=== PATIENT | female | born 1945 ===

== ENCOUNTER 2017-03-30 13:15 | Emergency (ER) | payer OTHER ==
[2017-03-30 13:35] VITALS: BP 134/69; PULSE 68; RESP 16; TEMP 98.6; O2SAT 100
--- NOTE | 2017-03-30 14:30 | ED PDOC ---
Lower Extremity Pain/Injury Time Seen by Provider: 03/30/17 13:44 Chief Complaint (Nursing): Lower Extremity Problem/Injury Chief Complaint (Provider): Left Leg Swelling History Per: Patient History/Exam Limitations: no limitations Current Symptoms Are (Timing): Still Present Additional Complaint(s): 71 year old female presents to the ED complaining of left leg swelling. Denies fall, pain. Patient has not been to the doctor and has no regular primary care provider. FAMILY PROVIDER,NO Past Medical History Reviewed: Historical Data, Nursing Documentation, Vital Signs Vital Signs: Last Vital Signs Temp 98.6 F 03/30/17 13:31 Pulse 68 03/30/17 13:31 Resp 16 03/30/17 13:31 BP 134/69 03/30/17 13:31 Pulse Ox 100 03/30/17 13:31 - Medical History PMH: No Chronic Diseases - Surgical History Surgical History: No Surg Hx - Family History Family History: States: Unknown Family Hx - Living Arrangements Living Arrangements: With Family - Social History Current smoker - smoking cessation education provided: No Ex-Smoker (has not smoked in the last 12 months): No Alcohol: None Drugs: Denies - Home Medications Home Medications: Ambulatory Orders Medication Instructions Recorded Calcium Carbonate/Vitamin D3 1 tab PO DAILY 08/16/15 [Caltrate 600 + D Tablet] Meclizine [Meclizine*] 25 mg PO Q6 PRN #20 tab 08/16/15 Compression Socks, Medium [Futuro 1 each MC DAILY #1 each 03/30/17 Restoring] - Allergies Allergies/Adverse Reactions: Allergies Allergy/AdvReac Type Severity Reaction Status Date / Time No Known Allergies Allergy Verified 07/05/15 21:00 Review of Systems Musculoskeletal: Positive for: Other (left leg swelling) Physical Exam - Reviewed Nursing Documentation Reviewed: Yes Vital Signs Reviewed: Yes - Physical Exam Appears: Positive for: Non-toxic, No Acute Distress Head Exam: Positive for: NORMAL INSPECTION Skin: Positive for: Normal Color, Warm, Dry. Negative for: Rash Eye Exam: Positive for: Normal appearance, EOMI, PERRL Cardiovascular/Chest: Positive for: Regular Rate, Rhythm, Chest Non Tender. Negative for: Tachycardia Respiratory: Positive for: Normal Breath Sounds. Negative for: Wheezing, Respiratory Distress Extremity: Positive for: Normal ROM (normal ROM of left leg), Other (2+ edema left leg;onychomycosis; multiple toe deformity toes angulated at MTP.). Negative for: Tenderness (no tenderness to left leg), Calf Tenderness (negative sherly's sign) Neurologic/Psych: Positive for: Alert, Oriented, Gait - Laboratory Results Result Diagrams: 03/30/17 15:00 03/30/17 15:00 - ECG O2 Sat by Pulse Oximetry: 100 (RA) Pulse Ox Interpretation: Normal - Progress ED Course And Treament: DUPLEX: NEG FOR DVT LABS WNL WILL GIVE RX FOR COMPRESSION STOCKING AND F/U INSTRUCTIONS. Medical Decision Making Medical Decision Makin Initial Impression 71 y/o female presenting with left leg swelling Initial PLan: * PROBNP * BMP * CBC * PTT * Prothrombin Time * US Duplex * Reevaluation 1510 HISTORY: R/O DVT . PRIORS: None. FINDINGS: 2-D, color and duplex Doppler analysis of the lower extremity venous circulation using routine protocol from the femoral veins through the popliteal veins. Venous compressibility: Normal. Flow and augmentation patterns: Normal. Visualized veins upper third of calf: Normal. Michaud cyst: None. IMPRESSION: No sonographic or Doppler evidence for DVT in left lower extremity. Documented by Jossie Subramanian acting as a scribe for Nora Shirley PA-C. All medical record entries made by the Scribe were at my direction and personally dictated by me. I have reviewed the chart and agree that the record accurately reflects my personal performance of the history, physical exam, medical decision making, and the department course for this patient. I have also personally directed, reviewed, and agree with the discharge instructions and disposition. Disposition - Clinical Impression Clinical Impression: Lower extremity edema - Patient ED Disposition Is Patient to be Admitted: No - Disposition Referrals: [facility] [Outside] Disposition: Routine/Home Disposition Time: 16:13 Condition: FAIR Prescriptions: Compression Socks, Medium [Futuro Restoring] 1 each MC DAILY #1 each Instructions: Leg Edema (ED) Forms: [employer] (Japanese) Print Language: POLISH
--- NOTE | 2017-03-30 15:12 | US ---
HISTORY: R/O DVT . PRIORS: None. FINDINGS: 2-D, color and duplex Doppler analysis of the lower extremity venous circulation using routine protocol from the femoral veins through the popliteal veins. Venous compressibility: Normal. Flow and augmentation patterns: Normal. Visualized veins upper third of calf: Normal. Michaud cyst: None. IMPRESSION: No sonographic or Doppler evidence for DVT in left lower extremity.
[2017-03-30 15:26] LABS: BASO % 0.5 % (0.0-2.0); EOS % 0.9 % (0.0-4.0); HEMOGLOBIN 12.9 g/dL (12.0-16.0); LYMPH # 1.6 K/uL (1.0-4.3); LYMPH % 35.2 % (20.0-40.0); MEAN CELL VOLUME 88.5 fl (81.0-99.0); MEAN CORPUSCULAR HGB CONC 32.8 g/dL (33.0-37.0); MEAN PLATELET VOLUME 8.1 fl (7.2-11.7); MONO # 0.3 K/uL (0.0-0.8); MONO % 7.2 % (0.0-10.0); NEUT # 2.6 K/uL (1.8-7.0); NEUT % 56.2 % (50.0-75.0); NRBC % 0.3 % (0.0-0.0); RBC 4.44 Mil/uL (3.80-5.20); RED CELL DISTRIBUTION WIDTH 12.9 % (11.5-14.5); WHITE BLOOD COUNT 4.6 K/uL (4.8-10.8)
[2017-03-30 15:49] LABS: BLOOD UREA NITROGEN 16 mg/dl (7-17); CALCIUM 9.6 mg/dL (8.4-10.2); GFR AFRICAN-AMERICAN > 60; GFR NON-AFRICAN AMERICAN > 60
[2017-03-30 15:57] LABS: B-TYPE NATRIURETIC PEPTIDE 305 pg/ml (0-900)
[2017-03-30 16:43] LABS: INR 1.1 (0.9-1.2); PARTIAL THROMBOPLASTIN TIME 30.7 Seconds (25.6-37.1); PROTHROMBIN TIME 11.7 Seconds (9.8-13.1)
== END 2017-03-30 16:23 | disposition home or self-care (01) ==
LOC: H.ER 13:15
DX: R60.0 Localized edema (principal)

== ENCOUNTER 2017-06-18 21:35 | Inpatient (IN) | payer MEDICAID, OTHER ==
[2017-06-18 22:08] LABS: BASO % 0.5 % (0.0-2.0); EOS % 0.6 % (0.0-4.0); HEMOGLOBIN 14.3 g/dL (12.0-16.0); LYMPH # 4.2 K/uL (1.0-4.3); LYMPH % 52.3 % (20.0-40.0); MEAN PLATELET VOLUME 8.2 fl (7.2-11.7); MONO # 0.9 K/uL (0.0-0.8); MONO % 11.1 % (0.0-10.0); NEUT # 2.9 K/uL (1.8-7.0); NEUT % 35.5 % (50.0-75.0); NRBC % 0.1 % (0.0-0.0); RBC 4.93 Mil/uL (3.80-5.20); RED CELL DISTRIBUTION WIDTH 12.8 % (11.5-14.5); WHITE BLOOD COUNT 8.1 K/uL (4.8-10.8)
[2017-06-18 22:18] LABS: ALB/GLOB RATIO 1.4 (1.0-2.1); ALBUMIN 4.7 g/dL (3.5-5.0); ALT/SGPT 25 U/L (9-52); AST/SGOT 27 U/L (14-36); BLOOD UREA NITROGEN 15 mg/dl (7-17); CALCIUM 9.6 mg/dL (8.4-10.2); GFR AFRICAN-AMERICAN 59; GFR NON-AFRICAN AMERICAN 49
--- NOTE | 2017-06-18 22:42 | ED PDOC ---
HPI: Seizure Time Seen by Provider: 06/18/17 21:40 Chief Complaint (Nursing): Altered Mental Status Chief Complaint (Provider): Seizure History Per: Patient, EMS, Family (daughter) History/Exam Limitations: clinical condition (Seizure) Recent Seizure Activity Began: Just Before Arrival Length Of Seizures (Duration): Unknown Additional Complaint(s): 72 year old female, with ? medical history of hypertension, presented to ED via EMS accompanied by granddaughter and daughter for seizure onset [facility]. Per EMS, pt and her grandmother were home, and seizure was witnessed by granddaughter who she reports seizure like activity, generalized shaking of patients upper extremity, eyes roll back. Upon arrival in the ER, pt was very agitated toward staff. She was trying to pull off her ID band, and not allowing us to place an IV or keep the gown on. She was attempting to climb out of the bed. According to the patients daughter (who wasnt present during shaking episode) pt has no doctor, has no prior medical problems but doesnt have any primary physician to follow up with. States as far as she knows, pt has no recent fever/vomiting/ headache/dizziness. PMD: Past Medical History Reviewed: Historical Data, Nursing Documentation, Vital Signs Vital Signs: Last Vital Signs Temp 98.1 F 06/19/17 19:29 Pulse 84 06/19/17 19:29 Resp 16 06/19/17 19:29 BP 132/68 06/19/17 19:29 Pulse Ox 98 06/19/17 19:29 - Medical History PMH: HTN - Surgical History Surgical History: No Surg Hx - Family History Family History: States: Unknown Family Hx - Social History Current smoker - smoking cessation education provided: No Alcohol: None Drugs: Denies - Home Medications Home Medications: Ambulatory Orders Medication Instructions Recorded No Known Home Med 06/19/17 - Allergies Allergies/Adverse Reactions: Allergies Allergy/AdvReac Type Severity Reaction Status Date / Time No Known Allergies Allergy Verified 06/18/17 21:40 Review of Systems Review Of Systems: ROS cannot be obtained secondary to pt's inabilty to answer questions. (due to seizure activity) Neurological: Positive for: Seizures Physical Exam - Reviewed Nursing Documentation Reviewed: Yes Vital Signs Reviewed: Yes - Physical Exam Appears: Positive for: Non-toxic (agitated and uncooperative) Skin: Positive for: Normal Color, Warm, Dry Neck: Positive for: Normal, Painless ROM Cardiovascular/Chest: Positive for: Regular Rate, Rhythm Respiratory: Positive for: Normal Breath Sounds Gastrointestinal/Abdominal: Positive for: Normal Exam Extremity: Positive for: Normal ROM Neurologic/Psych: Positive for: Alert (awake and in no distress. But appears confused. Not able to follow commands. ), linoleum installer II-XII, Motor/Sensory Deficits ( pt moving all 4 extremities without distress. no apparent weakness.), Other ( Agitated, attempting to pull off wrist band, swinging at the staff in the ER). Negative for: Oriented, Facial Droop - Laboratory Results Result Diagrams: 06/19/17 05:00 06/19/17 05:00 - ECG ECG Rhythm: Positive for: Sinus Tachycardia (106) Medical Decision Making Medical Decision Making: Initial Impression: Seizure - witnessed. will need to rule out electrolyte abnormality/infection/ intracranial bleed Initial Plan: CT w/o contrast ECG Drug screen, urine X-Ray Ativan 1mg IM Ativan 1mg IV Urine culture Urinalysis -Patient was pulling and attempting to swing at staff and trying to jump out of bed. She was given soft restraints and medications to relieve agitation (ativan ). - with ativan, pt calmed down. CT head: no acute findings. actate 10, likely due to seizure activity as there is no other sign of infection such as elevated wbc or fever. Urine shows no UTI. tox screen negative. ordered AM consult w neurology pt will be admitted to tele under hospitalist Dr Carlisle. Scribe Attestation: Documented by Atilio Anguiano acting as a scribe for Tika Mckenna MD. Provider Scribe Attestation: All medical record entries made by the Scribe were at my direction and personally dictated by me. I have reviewed the chart and agree that the record accurately reflects my personal performance of the history, physical exam, medical decision making, and the department course for this patient. I have also personally directed, reviewed, and agree with the discharge instructions and disposition. Disposition - Clinical Impression Clinical Impression: Seizure - Patient ED Disposition Is Patient to be Admitted: Yes - Disposition Disposition Time: 23:00 Condition: STABLE
[2017-06-18 23:30] LABS: URINE BILIRUBIN NEGATIVE (NEGATIVE); URINE BLOOD NEGATIVE (NEGATIVE); URINE CLARITY CLEAR (Clear); URINE COLOR YELLOW (YELLOW); URINE GLUCOSE (UA) NEG (Normal); URINE LEUKOCYTE ESTERASE NEG Leu/uL (Negative); URINE PROTEIN 30 mg/dL (NEGATIVE); URINE UROBILINOGEN 0.2-1.0 mg/dL (0.2-1.0)
[2017-06-18 23:40] LABS: BARBITURATES, UR NEGATIVE (NEGATIVE); BENZODIAZEPINES, UR NEGATIVE (NEGATIVE); OPIATES, UR NEGATIVE (NEGATIVE); PHENCYCLIDINE, UR NEGATIVE (NEGATIVE)
--- NOTE | 2017-06-18 23:59 | CT ---
EXAM: CT Head Without Intravenous Contrast EXAM DATE/TIME: 06/18/2017 9:51 PM CLINICAL HISTORY: 72 years old, female; Signs and symptoms; Altered mental status/memory loss; Other: Poss seizure TECHNIQUE: Axial computed tomography images of the head/brain without intravenous contrast. All CT scans at this facility use one or more dose reduction techniques, viz.: automated exposure control; ma/kV adjustment per patient size (including targeted exams where dose is matched to indication; i.e. head); or iterative reconstruction technique. Coronal and sagittal reformatted images were created and reviewed. COMPARISON: CT - HEAD W/O CONTRAST 2015-08-16 12:55 FINDINGS: There is atrophy. There is chronic small vessel ischemic disease. There is an area of encephalomalacia in the right frontal lobe similar to prior. There is no hemorrhage or edema. Mucosal thickening left maxillary sinus. The osseous structures are normal. IMPRESSION: No acute intracranial findings.
[2017-06-19] MEDS ORDERED: Sodium Chloride 0.9% 1,000 ML IV STA (00:06)
--- NOTE | 2017-06-19 00:17 | CP.PCM.HP ---
History of Present Illness - History of Present Illness History of Present Illness: CC: agitation, seizures HPI: This is a 72 y/o female with ?HTN but no other known chronic problems who does not follow up with any PCP. She is brought in after having a seizure at home witnessed by family. Here in the ER, patient was agitated and was sedated. Patient has no history of seizures, dementia, EtOH abuse or other substance use as far as is known. Patient also has no history of head trauma as far as is known. Patient has not had any recent illnesses/fevers otherwise. ROS: cannot obtain, patient sedated MHx/SHx: Possibly HTN Allergies: NKDA Medications: No medications Family Hx: No history of seizures Social Hx: Lives with family, no tobacco, no EtOH Present on Admission - Present on Admission Any Indicators Present on Admission: No Past Patient History - Past Social History Smoking Status: Never Smoked - CARDIAC Hx Hypertension: Yes - PSYCHIATRIC Hx Substance Use: No - SURGICAL HISTORY Hx Surgeries: No - ANESTHESIA Hx Anesthesia: No Meds Allergies/Adverse Reactions: Allergies Allergy/AdvReac Type Severity Reaction Status Date / Time No Known Allergies Allergy Verified 06/18/17 21:40 Physical Exam - Constitutional Additional comments: patient is sedated - Head Exam Head Exam: ATRAUMATIC, NORMOCEPHALIC - ENT Exam ENT Exam: Mucous Membranes Moist - Respiratory Exam Respiratory Exam: Clear to Auscultation Bilateral, NORMAL BREATHING PATTERN - Cardiovascular Exam Cardiovascular Exam: REGULAR RHYTHM, +S1, +S2 - GI/Abdominal Exam GI & Abdominal Exam: Normal Bowel Sounds, Soft - Extremities Exam Extremities exam: Positive for: normal inspection - Neurological Exam Additional comments: patient is sedated - Skin Skin Exam: Dry, Warm Results - Vital Signs Recent Vital Signs: Last Vital Signs Temp 97.5 F L 06/18/17 22:11 Pulse 96 H 06/18/17 22:11 Resp 18 06/18/17 22:11 BP 161/80 H 06/18/17 22:11 Pulse Ox 98 06/18/17 22:11 - Labs Result Diagrams: 06/18/17 22:03 06/18/17 22:03 Labs: Laboratory Results - last 24 hr 06/18/17 06/18/17 06/18/17 21:56 22:03 22:03 WBC 8.1 D RBC 4.93 Hgb 14.3 Hct 43.4 MCV 88.0 MCH 29.0 MCHC 33.0 RDW 12.8 Plt Count 292 D MPV 8.2 Neut % (Auto) 35.5 L Lymph % (Auto) 52.3 H Will % (Auto) 11.1 H Eos % (Auto) 0.6 Baso % (Auto) 0.5 Neut # (Auto) 2.9 Lymph # (Auto) 4.2 Will # (Auto) 0.9 H Eos # (Auto) 0.0 Baso # (Auto) 0.0 Sodium 141 Potassium 3.7 Chloride 98 Carbon Dioxide 17 L Anion Gap 30 H BUN 15 Creatinine 1.1 Est GFR ( Amer) 59 Est GFR (Non-Af Amer) 49 POC Glucose (mg/dL) 123 H Random Glucose 149 H Lactic Acid Calcium 9.6 Total Bilirubin 0.5 AST 27 ALT 25 Alkaline Phosphatase 187 H Total Protein 8.1 Albumin 4.7 Globulin 3.4 Albumin/Globulin Ratio 1.4 Urine Color Urine Clarity Urine pH Ur Specific [place] Urine Protein Urine Glucose (UA) Urine Ketones Urine Blood Urine Nitrate Urine Bilirubin Urine Urobilinogen Ur Leukocyte Esterase Urine RBC (Auto) Urine Microscopic WBC Hyaline Casts Urine Opiates Screen Urine Methadone Screen Ur Barbiturates Screen Ur Phencyclidine Scrn Ur Amphetamines Screen U Benzodiazepines Scrn U Oth Cocaine Metabols U Cannabinoids Screen Alcohol, Quantitative < 10 06/18/17 06/18/17 06/18/17 22:03 23:16 23:16 WBC RBC Hgb Hct MCV MCH MCHC RDW Plt Count MPV Neut % (Auto) Lymph % (Auto) Will % (Auto) Eos % (Auto) Baso % (Auto) Neut # (Auto) Lymph # (Auto) Will # (Auto) Eos # (Auto) Baso # (Auto) Sodium Potassium Chloride Carbon Dioxide Anion Gap BUN Creatinine Est GFR ( Amer) Est GFR (Non-Af Amer) POC Glucose (mg/dL) Random Glucose Lactic Acid 10.5 H* Calcium Total Bilirubin AST ALT Alkaline Phosphatase Total Protein Albumin Globulin Albumin/Globulin Ratio Urine Color Yellow Urine Clarity Clear Urine pH 7.0 Ur Specific [place] 1.014 Urine Protein 30 Urine Glucose (UA) Neg Urine Ketones Trace Urine Blood Negative Urine Nitrate Negative Urine Bilirubin Negative Urine Urobilinogen 0.2-1.0 Ur Leukocyte Esterase Neg Urine RBC (Auto) 3 Urine Microscopic WBC 1 Hyaline Casts 3-5 H Urine Opiates Screen Negative Urine Methadone Screen Negative Ur Barbiturates Screen Negative Ur Phencyclidine Scrn Negative Ur Amphetamines Screen Negative U Benzodiazepines Scrn Negative U Oth Cocaine Metabols Negative U Cannabinoids Screen Negative Alcohol, Quantitative - EKG Data EKG Interpreted by: Myself EKG shows normal: Sinus rhythm Rate: Normal - Imaging and Cardiology CT scan - head Status: Image reviewed by me, Report reviewed by me (R frontal encephalomalacia) Chest x-ray Status: Image reviewed by me (no acute findings) Assessment & Plan (1) Seizure Assessment and Plan: 72 y/o female with agitation and possible seizure. -Admit tele obs -Ativan IV PRN for seizures -Neuro consult in AM -SCDs for DVT prophylaxis Status: Acute (2) DVT prophylaxis Status: Acute
[2017-06-19] MEDS ORDERED: Labetalol 5 mg/ml Inj 20ML IVP STA (01:53)
[2017-06-19 06:16] LABS: BASO % 0.4 % (0.0-2.0); HEMOGLOBIN 13.9 g/dL (12.0-16.0); LYMPH % 11.4 % (20.0-40.0); MEAN CELL VOLUME 87.2 fl (81.0-99.0); MEAN CORPUSCULAR HGB CONC 33.3 g/dL (33.0-37.0); MEAN PLATELET VOLUME 8.6 fl (7.2-11.7); MONO # 0.4 K/uL (0.0-0.8); NEUT # 7.4 K/uL (1.8-7.0); NEUT % 83.2 % (50.0-75.0); NRBC % 0.1 % (0.0-0.0); RBC 4.79 Mil/uL (3.80-5.20); RED CELL DISTRIBUTION WIDTH 12.7 % (11.5-14.5); WHITE BLOOD COUNT 8.8 K/uL (4.8-10.8)
[2017-06-19 06:31] LABS: BLOOD UREA NITROGEN 11 mg/dl (7-17); GFR AFRICAN-AMERICAN > 60; GFR NON-AFRICAN AMERICAN > 60
[2017-06-19 08:40] LABS: T4 10.3 ug/dl (5.5-11.0)
[2017-06-19 08:53] LABS: T3 0.934 nmol/L (1.49-2.60)
--- NOTE | 2017-06-19 09:59 | RAD ---
HISTORY: agitation COMPARISON: 08/16/2015 FINDINGS: LUNGS: Lung cornelius appear overinflated ; rule out underlying COPD and/or emphysema. PLEURA: No significant pleural effusion identified, no pneumothorax apparent. CARDIOVASCULAR: Heart appears borderline/ mildly enlarged OSSEOUS STRUCTURES: No significant abnormalities. VISUALIZED UPPER ABDOMEN: Normal. OTHER FINDINGS: None. IMPRESSION: Mild hyperinflation; rule out COPD or emphysema.
--- NOTE | 2017-06-19 12:21 | MRI ---
PROCEDURE: MRI BRAIN WITHOUT CONTRAST HISTORY: change of mental status COMPARISON: Comparison made with prior CT scan of the brain 06/18/2017. TECHNIQUE: Multiplanar, multisequence MR images of the brain were obtained without intravenous contrast enhancement. FINDINGS: HEMORRHAGE: No acute parenchymal, subarachnoid or extra-axial hemorrhage. . There are several foci of very dark T2 signal seen scattered about both basal nuclei and right temporal lobe likely representing hemosiderin deposits as no calcifications seen in these locations on prior study. DWI: There is a very tiny focus of restricted diffusion in the right posterior superior parietal subcortical white matter near the vertex consistent with a tiny acute/ subacute infarct. BRAIN PARENCHYMA: Moderate diffuse/ confluent chronic white matter ischemic changes are seen extending peripherally into the deep and subcortical white matter both cerebral hemispheres. Discrete chronic right infarct with multiple small chronic appearing lacunar type infarcts scattered about the deep and subcortical white matter as well as both basal ganglia. Few chronic lacunar-type infarcts left cerebellum and brainstem also felt to be present. None of these changes exhibit restricted diffusion. . Moderate generalized volume loss. VENTRICLES: No obstructive hydrocephalus. CRANIUM: No acute calvarial abnormalities ORBITS: Orbits and contents appear grossly unremarkable. PARANASAL SINUSES/MASTOIDS: Visualized paranasal sinuses are well-developed re- demonstrated are of polypoid like mucosal thickening changes in the floor left maxillary antrum. VASCULAR SYSTEM: Visualized major vascular flow voids at skull base patent. OTHER FINDINGS: None. IMPRESSION: There is a tiny acute/ subacute infarct right posterior superior parietal subcortical white matter near the vertex. . Moderate chronic white matter ischemic changes with a large chronic right frontal lobe infarct. . Multiple chronic appearing lacunar type infarcts scattered about the deep and subcortical white matter, both basal nuclei and to a lesser degree brainstem and left cerebellum. There are scattered areas of hemosiderin deposits seen in the basal nuclei and right temporal lobe. Moderate generalized volume loss. These findings discussed with 4 Domo Jurado at approximately 12:18 p.m. with written down and read back verification
[2017-06-19] MEDS ORDERED: Sodium Chloride 0.9% 1,000 ML IV SCH (13:30)
[2017-06-19] MEDS ORDERED: Iodixanol 320 MG/ML 100 ML BOTTLE IV ONE (13:53)
--- NOTE | 2017-06-19 14:26 | PCM.STROKE ---
NIHSS Stroke Scale - Date/Time Evaluation Performed Date Performed: 06/19/17 Time Performed: 13:45 When Was NIHSS Performed: Baseline - How Severe is the Stroke Level of Consciousness: 1=Drowsy LOC to Questions: 2=Neither correct LOC to commands: 2=Neither correct Best Gaze: 0=Normal Visual: 0=No visual loss Facial: 0=Normal Motor Arm - Left: 0=No drift Motor Arm - Right: 0=No drift Motor Leg - Left: 0=No drift Motor Leg - Right: 0=No drift Limb Ataxia: 0=Absent Sensory: 0=Normal Best Language: 0=No aphasia Dysarthia: 0=Normal articulation Extinction & Inattention (Neglect): 0=Normal, no object (NIHSS done after MRI was read as Acute/Subacute CVA , very drowsy due to sedation and uncooperative) Score: 5 Exam - Vital Sign Vital Signs: Temp Pulse Resp BP Pulse Ox 97.6 F 87 18 93/54 L 98 06/19/17 12:23 06/19/17 12:23 06/19/17 12:23 06/19/17 12:23 06/19/17 12:23 - Data reviewed Laboratory results: 06/19/17 05:00 06/19/17 05:00
--- NOTE | 2017-06-19 14:58 | CT ---
PROCEDURE: CTA of the neck and brain dated 06/19/2017 HISTORY: Tiny acute stroke seen on recent MRI. COMPARISON: Comparison made with MRI of the brain obtained earlier same day. TECHNIQUE: Contiguous helical/transaxial images of the neck were obtained from the level of the skull-base to the superior mediastinum in the arteriographic phase of enhancement. Coronal and sagittal reformats or also generated. IV contrast dose: 99 cc Visipaque 320 Radiation Dose - DLP: 470.79 mGy-cm This CT exam was performed using one or more of the following dose reduction techniques: Automated exposure control, adjustment of the mA and/or kV according to patient size, and/or use of iterative reconstruction technique. . FINDINGS: The the aortic arch exhibits mild partially calcified atherosclerotic plaque. There is also a tiny plaque changes seen at the origin of the left subclavian and plaque along the proximal right brachiocephalic artery. However the origins of the great vessels are widely patent. . The common carotid arteries appear widely patent without evidence of significant stenosis or dissection. There is small curvilinear calcified plaque seen along the posteromedial margin of the right carotid bifurcation and extending distally into the proximal on margin of the right internal carotid artery however no significant stenosis. The distal internal carotid arteries including the petrous segments widely patent. There is mild partially calcified atherosclerotic plaque seen along both cavernous carotid arteries move left-side of which appears slightly larger than the right and results in move moderate - significant stenosis. Vertebral arteries are patent throughout left-sided which is much larger in caliber/more dominant than the right side. This is felt to represent an anatomic variation. . The right vertebral artery appears to terminate right-sided posterior inferior cerebellar artery (PICA) basilar artery is patent. There is a origin of the right posterior cerebral artery with hypoplastic appearing right-sided P1 segment. The remaining visualized major branches of the [place] are widely patent. The visualized distal branches of the anterior middle and posterior cerebral arteries are patent and relatively symmetric. No evidence of large aneurysm nor vascular malformation. Note is made of several bubbles of air within the cavernous sinuses likely due to recent intravenous injection. Heterogeneous appearance of the right thyroid gland with several of varying sized low-attenuation nodular densities at least 2 of which exhibit peripheral calcification. Consider follow-up thyroid isotope imaging further evaluation. IMPRESSION: There is a small curvilinear calcified plaque right carotid bifurcation with no significant stenosis. . Tiny left carotid bifurcation with no evidence of occlusion significant stenosis or dissection. There are partially calcified plaque changes seen both cavernous carotid segments larger than right with moderate to significant stenosis of the mid aspect of the left cavernous carotid segment. There is origin of the right posterior cerebral artery. The right vertebral artery is much smaller in caliber than the dominant left vertebral artery. Right vertebral artery also appears to terminate in a right-side posterior inferior cerebellar artery as above. No evidence of large aneurysm nor vascular malformation. Note is made of several bubbles of air within the cavernous sinuses likely due to recent intravenous injection.
--- NOTE | 2017-06-19 15:59 | US ---
PROCEDURE: Duplex ultrasound of the carotid and vertebral arteries. HISTORY: acute CVA COMPARISON: None available. TECHNIQUE: Grayscale and duplex Doppler evaluation of the cervical carotid and vertebral arteries were performed. The common carotid, carotid bifurcations and cervical ICA and proximal ECA were evaluated. The vertebral arteries were evaluated for gross patency and direction. FINDINGS: RIGHT CAROTID ARTERIES: Common Carotid Artery: Intimal thickening is present Maximal flow velocity of 92.9 cm/s. Carotid Bifurcation: Heterogeneous plaque formation. Internal Carotid Artery:Heterogeneous plaque formation. Tortuous right ICA. Maximal flow velocity of 114.1 cm/s. External Carotid Artery (proximal branches): Normal. Maximal flow velocity of 79.3 cm/s. ICA/CCA Ratio: 1.5 LEFT CAROTID ARTERIES: Common Carotid Artery: Intimal thickening is present Maximal flow velocity of 58.9 cm/s. Carotid Bifurcation: Heterogeneous plaque formation. Internal Carotid Artery:Heterogeneous plaque formation. Tortuous left ICA Maximal flow velocity of 161.2 cm/s. External Carotid Artery (proximal branches): Normal. Maximal flow velocity of 77.2 cm/s. ICA/CCA Ratio: 2.7 VERTEBRAL ARTERIES: Right Vertebral Artery: Patent. Antegrade flow. Left Vertebral Artery: Patent. Antegrade flow. OTHER FINDINGS: None. IMPRESSION: Right ICA degree of stenosis: Less than 50% Left ICA degree of stenosis: 50-69 % Reference Internal Carotid Artery (ICA) Peak Systolic Velocity (PSV) for above: 1. Less than 50% stenosis less than 125 cm/s peak systolic velocity 2. 50-69% stenosis 125-230cm/s peak systolic velocity 3. Greater than 70% but less than near occlusion greater than 230 cm/s peak systolic velocity
[2017-06-19] MEDS: Enoxaparin 40 mg Syringe SC SCH (16:03)
--- NOTE | 2017-06-19 18:59 | CARD ---
APPROVED REPORT EXAM: Two-dimensional and M-mode echocardiogram with Doppler and color Doppler. Other Information Quality : GoodRhythm : NSR INDICATION CVA/TIA 2D DIMENSIONS IVSd1.12 (0.7-1.1cm)LVDd3.69 (3.9-5.9cm) LVOT Diameter2.11 (1.8-2.4cm)PWd0.94 (0.7-1.1cm) IVSs1.11 (0.8-1.2cm)LVDs2.32 (2.5-4.0cm) FS (%) 37.1 %PWs0.96 (0.8-1.2cm) LVEF (%)55.0 (>50%) M-Mode DIMENSIONS Left Atrium (MM)2.29 (2.5-4.0cm)IVSd0.97 (0.7-1.1cm) Aortic Root3.01 (2.2-3.7cm)LVDd4.30 (4.0-5.6cm) Aortic Cusp Exc.1.76 (1.5-2.0cm)PWd1.27 (0.7-1.1cm) IVSs1.38 cmFS (%) 42 % LVDs2.48 (2.0-3.8cm)PWs1.43 cm Mitral Valve MV E Uklnzoxp47.1cm/sMV DECEL CORC035nkLE A Oftagnhi46.6cm/s MV CKE52teF/A ratio0.8MVA (PHT)3.08cm2 TDI Lateral E' Peak V4.24cm/sMedial E' Peak V5.38cm/sE/Lateral E'12.1 E/Medial E'9.5 Tricuspid Valve TR Peak [id number]/sRAP [id number] Peak Gr.25mmHg [id number] LEFT VENTRICLE The left ventricle is normal size. There is normal left ventricular wall thickness. The left ventricular function is normal. The left ventricular ejection fraction is within the normal range. There is normal LV segmental wall motion. Transmitral Doppler flow pattern is Grade I-abnormal relaxation pattern. RIGHT VENTRICLE The right ventricle is normal size. There is normal right ventricular wall thickness. The right ventricular systolic function is normal. ATRIA The left atrium size is normal. The right atrium size is normal. AORTIC VALVE The aortic valve is not well visualized. There is moderate aortic regurgitation. There is no aortic valvular stenosis. MITRAL VALVE The mitral valve is not well visualized. There is no mitral valve stenosis. Mitral regurgitation is moderate. TRICUSPID VALVE The tricuspid valve is normal in structure. There is mild tricuspid regurgitation. There is mild pulmonary hypertension. PULMONIC VALVE The pulmonary valve is normal in structure. There is no pulmonic valvular regurgitation. GREAT VESSELS The aortic root is normal in size. The IVC is normal in size and collapses >50% with inspiration. PERICARDIAL EFFUSION The pericardium appears normal. <Conclusion> The left ventricle is normal size. There is normal left ventricular wall thickness. The left ventricular function is normal. The left ventricular ejection fraction is within the normal range. There is normal LV segmental wall motion. Transmitral Doppler flow pattern is Grade I-abnormal relaxation pattern. There is moderate aortic regurgitation. There is no mitral valve stenosis. There is mild tricuspid regurgitation. There is mild pulmonary hypertension.
--- NOTE | 2017-06-19 22:48 | CARD ---
APPROVED REPORT EKG Measurement Heart [id number] <Conclusion> Sinus tachycardia Nonspecific ST and T wave abnormality Abnormal ECG
[2017-06-20 05:26] LABS: EOS # 0.1 K/uL (0.0-0.7); EOS % 2.2 % (0.0-4.0); HEMOGLOBIN 13.5 g/dL (12.0-16.0); LYMPH # 1.5 K/uL (1.0-4.3); LYMPH % 35.7 % (20.0-40.0); MEAN CELL VOLUME 87.4 fl (81.0-99.0); MEAN CORPUSCULAR HEMOGLOBIN 28.8 pg (27.0-31.0); MEAN PLATELET VOLUME 8.1 fl (7.2-11.7); MONO # 0.5 K/uL (0.0-0.8); MONO % 13.1 % (0.0-10.0); NRBC % 0.1 % (0.0-0.0); RBC 4.68 Mil/uL (3.80-5.20); RED CELL DISTRIBUTION WIDTH 12.9 % (11.5-14.5); WHITE BLOOD COUNT 4.1 K/uL (4.8-10.8)
[2017-06-20 05:44] LABS: LDL CHOLESTEROL 111 mg/dL (0-129)
[2017-06-20 05:48] LABS: ALB/GLOB RATIO 1.2 (1.0-2.1); ALBUMIN 3.4 g/dL (3.5-5.0); ALT/SGPT 28 U/L (9-52); AST/SGOT 43 U/L (14-36); BLOOD UREA NITROGEN 9 mg/dl (7-17); CALCIUM 8.6 mg/dL (8.4-10.2); GFR AFRICAN-AMERICAN > 60; GFR NON-AFRICAN AMERICAN > 60; HDL CHOLESTEROL 50 MG/DL (30-70)
[2017-06-20 06:01] LABS: PARTIAL THROMBOPLASTIN TIME 30.2 Seconds (25.6-37.1); PROTHROMBIN TIME 11.5 Seconds (9.8-13.1)
--- NOTE | 2017-06-20 08:15 | CP.PCM.PN ---
Subjective - Date & Time of Evaluation Date of Evaluation: 06/20/17 Time of Evaluation: 08:13 - Subjective Subjective: appears comfortable continues to be confused per staff discussed with Neurology will continue to work up hd sarah lei Objective - Vital Signs/Intake and Output Vital Signs (last 24 hours): Temp Pulse Resp BP Pulse Ox 97.6 F 78 18 129/60 99 06/20/17 05:00 06/20/17 05:00 06/20/17 05:00 06/20/17 05:00 06/20/17 05:00 - Medications Medications: Current Medications Aspirin (Aspirin) 325 mg PO DAILY [facility] Last Admin: 06/19/17 17:46 Dose: Not Given Atorvastatin Calcium (Lipitor) 20 mg PO DAILY [facility] Last Admin: 06/19/17 17:46 Dose: Not Given Cyanocobalamin (Vitamin B12 1000 Mcg/Ml Inj) 1,000 mcg IM BID [facility] Stop: 06/20/17 17:01 Last Admin: 06/19/17 16:03 Dose: 1,000 mcg Docusate Sodium (Colace) 100 mg PO BID [facility] Enoxaparin Sodium (Lovenox) 40 mg SC DAILY [facility] PRN Reason: Protocol Last Admin: 06/19/17 16:03 Dose: 40 mg Sodium Chloride (Sodium Chloride 0.9%) 1,000 mls @ 100 mls/hr IV .Q10H [facility] Stop: 06/20/17 13:26 Last Admin: 06/19/17 23:00 Dose: 100 mls/hr Lorazepam (Ativan) 0.5 mg IVP Q6 PRN PRN Reason: Seizure activity - Labs Labs: 06/20/17 04:50 06/20/17 04:50 PT 11.5 Seconds (9.8-13.1) 06/20/17 04:40 INR 1.0 (0.9-1.2) 06/20/17 04:40 APTT 30.2 Seconds (25.6-37.1) 06/20/17 04:40 - Constitutional Appears: Non-toxic, No Acute Distress - Head Exam Head Exam: ATRAUMATIC, NORMOCEPHALIC - Eye Exam Eye Exam: EOMI, Normal appearance - ENT Exam ENT Exam: Mucous Membranes Moist, Normal Oropharynx - Respiratory Exam Respiratory Exam: Clear to Ausculation Bilateral, NORMAL BREATHING PATTERN - Cardiovascular Exam Cardiovascular Exam: RRR, +S1, +S2 - GI/Abdominal Exam GI & Abdominal Exam: Soft, Normal Bowel Sounds - Extremities Exam Extremities Exam: absent: Joint Swelling, Pedal Edema - Back Exam Back Exam: absent: CVA tenderness (L), CVA tenderness (R) - Neurological Exam Neurological Exam: Alert, Awake - Psychiatric Exam Psychiatric exam: Normal Affect, Normal Mood - Skin Skin Exam: Dry, Warm Assessment and Plan - Assessment and Plan (Free Text) Plan: 72 y/o female with ?HTN but no other known chronic problems who does not follow up with any PCP. She is brought in after having a seizure at home witnessed by family. Here in the ER, patient was agitated and was sedated. Patient has no history of seizures, dementia, EtOH abuse or other substance use as far as is known. Patient also has no history of head trauma as far as is known. Patient has not had any recent illnesses/fevers otherwise. Seizure - with confusion, infection workup negative -Admit tele obs -Ativan IV PRN for seizures -Neuro consult in AM -PT/OT on board -SCDs for DVT prophylaxis
[2017-06-20] MEDS: Enoxaparin 40 mg Syringe SC SCH (08:24)
--- NOTE | 2017-06-20 17:16 | CP.PCM.CON ---
History of Present Illness - History of Present Illness History of Present Illness: 72 yr old woman seen in bed, with her family, and unresponsive due to receiving sedation earlier this hour. She is on board for an MRI [facility]. Past Patient History - Past Medical History & Family History Past Medical History?: Yes - Past Social History Alcohol: None Drugs: Denies - CARDIAC Hx Hypertension: Yes - PULMONARY Hx Respiratory Disorders: No - NEUROLOGICAL Hx Neurological Disorder: No - HEENT Hx HEENT Problems: No - RENAL Hx Chronic Kidney Disease: No Hx Dialysis: No - ENDOCRINE/METABOLIC Hx Endocrine Disorders: No - HEMATOLOGICAL/ONCOLOGICAL Hx Blood Disorders: No Hx AIDS: No Hx Human Immunodeficiency Virus (HIV): No - INTEGUMENTARY Hx Dermatological Problems: No - MUSCULOSKELETAL/RHEUMATOLOGICAL Hx Musculoskeletal Disorders: No Hx Falls: No - GASTROINTESTINAL Hx Gastrointestinal Disorders: No - GENITOURINARY/GYNECOLOGICAL Hx Genitourinary Disorders: No - PSYCHIATRIC Hx Psychophysiologic Disorder: No Hx Substance Use: No - SURGICAL HISTORY Hx Surgeries: No - ANESTHESIA Hx Anesthesia: No Hx Anesthesia Reactions: No Hx Malignant Hyperthermia: No Has any member of the family had a problem w/ anesthesia?: No Meds Allergies/Adverse Reactions: Allergies Allergy/AdvReac Type Severity Reaction Status Date / Time No Known Allergies Allergy Verified 06/18/17 21:40 - Medications Medications: Current Medications Aspirin (Aspirin) 325 mg PO DAILY [facility] Last Admin: 06/20/17 08:28 Dose: 325 mg Atorvastatin Calcium (Lipitor) 20 mg PO DAILY [facility] Last Admin: 06/20/17 08:24 Dose: 20 mg Clopidogrel Bisulfate (Plavix) 75 mg PO DAILY [facility] Last Admin: 06/20/17 15:59 Dose: 75 mg Docusate Sodium (Colace) 100 mg PO BID [facility] Last Admin: 06/20/17 16:00 Dose: 100 mg Enoxaparin Sodium (Lovenox) 40 mg SC DAILY [facility] PRN Reason: Protocol Last Admin: 06/20/17 08:24 Dose: 40 mg Lorazepam (Ativan) 0.5 mg IVP Q6 PRN PRN Reason: Seizure activity Results - Vital Signs Recent Vital Signs: Last Vital Signs Temp 97.6 F 06/20/17 16:14 Pulse 83 06/20/17 16:14 Resp 20 06/20/17 16:14 BP 124/68 06/20/17 16:14 Pulse Ox 98 06/20/17 16:14 - Labs Result Diagrams: 06/20/17 04:50 06/20/17 04:50 Labs: Laboratory Results - last 24 hr 06/19/17 06/20/17 06/20/17 08:14 04:40 04:50 WBC RBC Hgb Hct MCV MCH MCHC RDW Plt Count MPV Neut % (Auto) Lymph % (Auto) Wise % (Auto) Eos % (Auto) Baso % (Auto) Neut # (Auto) Lymph # (Auto) Wise # (Auto) Eos # (Auto) Baso # (Auto) PT 11.5 INR 1.0 APTT 30.2 Sodium 138 Potassium 3.6 Chloride 99 Carbon Dioxide 29 Anion Gap 14 BUN 9 Creatinine 0.8 Est GFR ( Amer) > 60 Est GFR (Non-Af Amer) > 60 Random Glucose 83 Lactic Acid Calcium 8.6 Total Bilirubin 0.9 AST 43 H D ALT 28 Alkaline Phosphatase 147 H D Total Protein 6.2 L Albumin 3.4 L D Globulin 2.9 Albumin/Globulin Ratio 1.2 Triglycerides 135 D Cholesterol 195 LDL Cholesterol Direct 111 HDL Cholesterol 50 RPR Nonreactive 06/20/17 06/20/17 04:50 04:50 WBC 4.1 L D RBC 4.68 Hgb 13.5 Hct 40.9 MCV 87.4 MCH 28.8 MCHC 33.0 RDW 12.9 Plt Count 182 MPV 8.1 Neut % (Auto) 48.0 L Lymph % (Auto) 35.7 Wise % (Auto) 13.1 H Eos % (Auto) 2.2 Baso % (Auto) 1.0 Neut # (Auto) 2.0 Lymph # (Auto) 1.5 Wise # (Auto) 0.5 Eos # (Auto) 0.1 Baso # (Auto) 0.0 PT INR APTT Sodium Potassium Chloride Carbon Dioxide Anion Gap BUN Creatinine Est GFR ( Amer) Est GFR (Non-Af Amer) Random Glucose Lactic Acid 1.1 Calcium Total Bilirubin AST ALT Alkaline Phosphatase Total Protein Albumin Globulin Albumin/Globulin Ratio Triglycerides Cholesterol LDL Cholesterol Direct HDL Cholesterol RPR
--- NOTE | 2017-06-20 17:18 | CP.PCM.PN ---
Subjective - Subjective Subjective: j Mri Brain shows right posterior superior parietal lobe acute stroke. plaN: 1 stroke workup. eCho, cta aspirin keep blood pressure elevated. Objective - Vital Signs/Intake and Output Vital Signs (last 24 hours): Temp Pulse Resp BP Pulse Ox 97.6 F 83 20 124/68 98 06/20/17 16:14 06/20/17 16:14 06/20/17 16:14 06/20/17 16:14 06/20/17 16:14 Intake and Output: 06/20/17 06/20/17 06:59 18:59 Intake Total 1999 Balance 1999 - Medications Medications: Current Medications Aspirin (Aspirin) 325 mg PO DAILY [facility] Last Admin: 06/20/17 08:28 Dose: 325 mg Atorvastatin Calcium (Lipitor) 20 mg PO DAILY [facility] Last Admin: 06/20/17 08:24 Dose: 20 mg Clopidogrel Bisulfate (Plavix) 75 mg PO DAILY [facility] Last Admin: 06/20/17 15:59 Dose: 75 mg Docusate Sodium (Colace) 100 mg PO BID [facility] Last Admin: 06/20/17 16:00 Dose: 100 mg Enoxaparin Sodium (Lovenox) 40 mg SC DAILY [facility] PRN Reason: Protocol Last Admin: 06/20/17 08:24 Dose: 40 mg Lorazepam (Ativan) 0.5 mg IVP Q6 PRN PRN Reason: Seizure activity - Labs Labs: 06/20/17 04:50 06/20/17 04:50 PT 11.5 Seconds (9.8-13.1) 06/20/17 04:40 INR 1.0 (0.9-1.2) 06/20/17 04:40 APTT 30.2 Seconds (25.6-37.1) 06/20/17 04:40
[2017-06-21] MEDS: Enoxaparin 40 mg Syringe SC SCH (09:36)
--- NOTE | 2017-06-21 13:50 | CP.PCM.PN ---
Subjective - Date & Time of Evaluation Date of Evaluation: 06/21/17 Time of Evaluation: 10:00 - Subjective Subjective: Patient was seen and examined bedside. Lying in bed in NAD , denies any pain .Alert awake and oriented to place, time and person . Appears to have some memory problems and slightly lethargic. Follows commands appropriately and moves all 4 extremities. Daughter by bedside. All test results explained and all questions answered. Hemodynamically stable, afebrile Objective - Vital Signs/Intake and Output Vital Signs (last 24 hours): Temp Pulse Resp BP Pulse Ox 98.5 F 78 20 144/56 L 99 06/21/17 12:18 06/21/17 12:18 06/21/17 12:18 06/21/17 12:18 06/21/17 12:18 - Medications Medications: Current Medications Aspirin (Aspirin) 325 mg PO DAILY [facility] Last Admin: 06/20/17 08:28 Dose: 325 mg Atorvastatin Calcium (Lipitor) 20 mg PO DAILY [facility] Last Admin: 06/21/17 09:36 Dose: 20 mg Clopidogrel Bisulfate (Plavix) 75 mg PO DAILY [facility] Last Admin: 06/21/17 09:37 Dose: 75 mg Docusate Sodium (Colace) 100 mg PO BID [facility] Last Admin: 06/21/17 09:35 Dose: 100 mg Enoxaparin Sodium (Lovenox) 40 mg SC DAILY [facility] PRN Reason: Protocol Last Admin: 06/21/17 09:36 Dose: 40 mg Lorazepam (Ativan) 0.5 mg IVP Q6 PRN PRN Reason: Seizure activity Last Admin: 06/20/17 20:31 Dose: 0.5 mg - Labs Labs: 06/20/17 04:50 06/20/17 04:50 PT 11.5 Seconds (9.8-13.1) 06/20/17 04:40 INR 1.0 (0.9-1.2) 06/20/17 04:40 APTT 30.2 Seconds (25.6-37.1) 06/20/17 04:40 - Constitutional Appears: Non-toxic, No Acute Distress, Other (lethargic) - Head Exam Head Exam: ATRAUMATIC, NORMAL INSPECTION, NORMOCEPHALIC - Eye Exam Eye Exam: EOMI, Normal appearance, PERRL Pupil Exam: NORMAL ACCOMODATION - ENT Exam ENT Exam: Mucous Membranes Moist, Normal Exam - Neck Exam Neck Exam: Full ROM, Normal Inspection - Respiratory Exam Respiratory Exam: Clear to Ausculation Bilateral, NORMAL BREATHING PATTERN. absent: Rhonchi, Wheezes - Cardiovascular Exam Cardiovascular Exam: REGULAR RHYTHM, RRR, +S1, +S2. absent: JVD - GI/Abdominal Exam GI & Abdominal Exam: Soft, Normal Bowel Sounds. absent: Distended, Guarding, Tenderness, Rebound - Rectal Exam Rectal Exam: Deferred - Extremities Exam Extremities Exam: Full ROM, Normal Capillary Refill, Normal Inspection. absent : Calf Tenderness, Pedal Edema - Back Exam Back Exam: NORMAL INSPECTION - Neurological Exam Neurological Exam: Alert, Awake, CN II-XII Intact, Oriented x3 - Psychiatric Exam Psychiatric exam: Normal Affect - Skin Skin Exam: Dry, Intact, Normal Color, Warm Assessment and Plan - Assessment and Plan (Free Text) Assessment: 72 y/o female with PMH HTN but no other known chronic problems who does not follow up with any PCP was brought in after having a seizure at home witnessed by family. In the ER, patient was agitated and was sedated. Patient has no history of seizures, dementia, EtOH abuse or other substance use as far as is known. Patient also has no history of head trauma as far as is known. Patient has not had any recent illnesses/fevers otherwise. CT head showed no acute pathology MRI head showed a tiny acute/ subacute infarct right posterior superior parietal subcortical white matter near the vertex. Moderate chronic white matter ischemic changes with a large chronic right frontal lobe infarct.Multiple chronic appearing lacunar type infarcts scattered about the deep and subcortical white matter, both basal nuclei and to a lesser degree brainstem and left cerebellum. There are scattered areas of hemosiderin deposits seen in the basal nuclei and right temporal lobe. Moderate generalized volume loss. Patient with some memory problems at present 1. Acute/ Subacute CVA at present with some memory problems that it could be underlying dementia MRI head as above neurology consult appreciated Continue ASa, statin , Plavix Allow permissive hypertension PT / speech therapy consults appreciated will continue PT daniel eibonnie [place] since patient has no insurance and [facility] transfer will not be possible 2.Seizure Most likely related to new CVA Ativan IV PRN for seizures neuro consult appreciated no neuroleptics started for now 3.HTN allow permissive hypertension 4.DVT prophylaxis SCD lovenox
[2017-06-22] MEDS: Enoxaparin 40 mg Syringe SC SCH (09:20)
--- NOTE | 2017-06-22 09:33 | CP.PCM.PN ---
Subjective - Date & Time of Evaluation Date of Evaluation: 06/22/17 Time of Evaluation: 09:32 - Subjective Subjective: Ms. Golden was seen and examined at the bedside. She is more alert, but with episode of disorientation. She is easily re-directed.She able to answer few questions and feeding herself independently. She is able to follow simple commands.There was no untoward events overnight. Objective - Vital Signs/Intake and Output Vital Signs (last 24 hours): Temp Pulse Resp BP Pulse Ox 97.8 F 80 18 156/68 H 98 06/22/17 08:33 06/22/17 08:33 06/22/17 08:33 06/22/17 08:33 06/22/17 08:33 - Medications Medications: Current Medications Aspirin (Ecotrin) 81 mg PO DAILY [facility] Atorvastatin Calcium (Lipitor) 20 mg PO DAILY [facility] Last Admin: 06/22/17 09:20 Dose: 20 mg Clopidogrel Bisulfate (Plavix) 75 mg PO DAILY [facility] Last Admin: 06/22/17 09:20 Dose: 75 mg Cyanocobalamin (Vitamin B-12) 250 mcg PO DAILY [facility] Docusate Sodium (Colace) 100 mg PO BID [facility] Last Admin: 06/22/17 09:20 Dose: 100 mg Enoxaparin Sodium (Lovenox) 40 mg SC DAILY [facility] PRN Reason: Protocol Last Admin: 06/22/17 09:20 Dose: 40 mg Lorazepam (Ativan) 0.5 mg IVP Q6 PRN PRN Reason: Seizure activity Last Admin: 06/20/17 20:31 Dose: 0.5 mg - Labs Labs: 06/20/17 04:50 06/20/17 04:50 PT 11.5 Seconds (9.8-13.1) 06/20/17 04:40 INR 1.0 (0.9-1.2) 06/20/17 04:40 APTT 30.2 Seconds (25.6-37.1) 06/20/17 04:40 - Constitutional Appears: No Acute Distress - Head Exam Head Exam: NORMAL INSPECTION - Neurological Exam Neurological Exam: Awake Neuro motor strength exam: Left Upper Extremity: 4, Right Upper Extremity: 4, Left Lower Extremity: 3, Right Lower Extremity: 3 Additional comments: Neurological improved since admission. She is more alert, but with episode of disorientation. She is able to follow some questions. Assessment and Plan (1) Ischemic stroke Assessment & Plan: Case discussed with Dr. Crandall, continue all current medical, physical, occupational, and speech therapies. Recommend vitamin b 12 supplement due to patient's low level. Recommend blood pressure control and maintain head of bed elevated at least 30 degrees. Status: Acute
[2017-06-22] MEDS ORDERED: CYANOCOBALAMIN (VITAMIN B-12) 250 MCG TABLET PO SCH (09:45)
[2017-06-22] MEDS ORDERED: Thiamine 100 mg/ml Inj IM ONE (11:25)
[2017-06-22 12:27] VITALS: BP 131/56; PULSE 86; RESP 20; TEMP 97.4; O2SAT 99
--- NOTE | 2017-06-22 13:04 | CP.PCM.DIS ---
Provider - Provider Date of Admission: 06/19/17 00:03 Attending physician: Estrellita Carlisle MD Consults: neuro consult Time Spent in preparation of Discharge (in minutes): 20 Hospital Course - Lab Results Lab Results: Micro Results 06/18/17 07:48 Urine,Clean Catch Urine Culture - Final No Growth (<1,000 CFU/ML) Most Recent Lab Values WBC 4.1 K/uL (4.8-10.8) L D 06/20/17 04:50 RBC 4.68 Mil/uL (3.80-5.20) 06/20/17 04:50 Hgb 13.5 g/dL (12.0-16.0) 06/20/17 04:50 Hct 40.9 % (34.0-47.0) 06/20/17 04:50 MCV 87.4 fl (81.0-99.0) 06/20/17 04:50 MCH 28.8 pg (27.0-31.0) 06/20/17 04:50 MCHC 33.0 g/dL (33.0-37.0) 06/20/17 04:50 RDW 12.9 % (11.5-14.5) 06/20/17 04:50 Plt Count 182 K/uL (130-400) 06/20/17 04:50 MPV 8.1 fl (7.2-11.7) 06/20/17 04:50 Neut % (Auto) 48.0 % (50.0-75.0) L 06/20/17 04:50 Lymph % (Auto) 35.7 % (20.0-40.0) 06/20/17 04:50 Reeves % (Auto) 13.1 % (0.0-10.0) H 06/20/17 04:50 Eos % (Auto) 2.2 % (0.0-4.0) 06/20/17 04:50 Baso % (Auto) 1.0 % (0.0-2.0) 06/20/17 04:50 Neut # (Auto) 2.0 K/uL (1.8-7.0) 06/20/17 04:50 Lymph # (Auto) 1.5 K/uL (1.0-4.3) 06/20/17 04:50 Reeves # (Auto) 0.5 K/uL (0.0-0.8) 06/20/17 04:50 Eos # (Auto) 0.1 K/uL (0.0-0.7) 06/20/17 04:50 Baso # (Auto) 0.0 K/uL (0.0-0.2) 06/20/17 04:50 PT 11.5 Seconds (9.8-13.1) 06/20/17 04:40 INR 1.0 (0.9-1.2) 06/20/17 04:40 APTT 30.2 Seconds (25.6-37.1) 06/20/17 04:40 Sodium 138 mmol/l (132-148) 06/20/17 04:50 Potassium 3.6 MMOL/L (3.6-5.0) 06/20/17 04:50 Chloride 99 mmol/L (98-107) 06/20/17 04:50 Carbon Dioxide 29 mmol/L (22-30) 06/20/17 04:50 Anion Gap 14 (10-20) 06/20/17 04:50 BUN 9 mg/dl (7-17) 06/20/17 04:50 Creatinine 0.8 mg/dl (0.7-1.2) 06/20/17 04:50 Est GFR ( Amer) > 60 06/20/17 04:50 Est GFR (Non-Af Amer) > 60 06/20/17 04:50 POC Glucose (mg/dL) 123 mg/dL (65-110) H 06/18/17 21:56 Random Glucose 83 mg/dL (65-105) 06/20/17 04:50 Hemoglobin A1c 5.8 % (4.2-6.5) 06/21/17 05:14 Lactic Acid 1.1 MMOL/L (0.7-2.1) 06/20/17 04:50 Calcium 8.6 mg/dL (8.4-10.2) 06/20/17 04:50 Total Bilirubin 0.9 mg/dl (0.2-1.3) 06/20/17 04:50 AST 43 U/L (14-36) H D 06/20/17 04:50 ALT 28 U/L (9-52) 06/20/17 04:50 Alkaline Phosphatase 147 U/L (38-126) H D 06/20/17 04:50 Total Protein 6.2 G/DL (6.3-8.2) L 06/20/17 04:50 Albumin 3.4 g/dL (3.5-5.0) L D 06/20/17 04:50 Globulin 2.9 gm/dL (2.2-3.9) 06/20/17 04:50 Albumin/Globulin Ratio 1.2 (1.0-2.1) 06/20/17 04:50 Triglycerides 135 mg/DL (0-149) D 06/20/17 04:50 Cholesterol 195 mg/dL (0-199) 06/20/17 04:50 LDL Cholesterol Direct 111 mg/dL (0-129) 06/20/17 04:50 HDL Cholesterol 50 MG/DL (30-70) 06/20/17 04:50 Vitamin B12 < 159 pg/mL (239-931) L 06/19/17 08:14 Thyroxine (T4) 10.3 ug/dl (5.5-11.0) 06/19/17 08:14 Total T3 0.934 nmol/L (1.49-2.60) L 06/19/17 08:14 TSH 3rd Generation 0.91 mIU/ML (0.46-4.68) 06/19/17 08:14 Urine Color Yellow (YELLOW) 06/18/17 23:16 Urine Clarity Clear (Clear) 06/18/17 23:16 Urine pH 7.0 (5.0-8.0) 06/18/17 23:16 Ur Specific [place] 1.014 (1.003-1.030) 06/18/17 23:16 Urine Protein 30 mg/dL (NEGATIVE) 06/18/17 23:16 Urine Glucose (UA) Neg mg/dL (Normal) 06/18/17 23:16 Urine Ketones Trace mg/dL (NEGATIVE) 06/18/17 23:16 Urine Blood Negative (NEGATIVE) 06/18/17 23:16 Urine Nitrate Negative (NEGATIVE) 06/18/17 23:16 Urine Bilirubin Negative (NEGATIVE) 06/18/17 23:16 Urine Urobilinogen 0.2-1.0 mg/dL (0.2-1.0) 06/18/17 23:16 Ur Leukocyte Esterase Neg [place]oma/uL (Negative) 06/18/17 23:16 Urine RBC (Auto) 3 /hpf (0-3) 06/18/17 23:16 Urine Microscopic WBC 1 /hpf (0-5) 06/18/17 23:16 Hyaline Casts 3-5 /hpf (0-2) H 06/18/17 23:16 Urine Opiates Screen Negative (NEGATIVE) 06/18/17 23:16 Urine Methadone Screen Negative (NEGATIVE) 06/18/17 23:16 Ur Barbiturates Screen Negative (NEGATIVE) 06/18/17 23:16 Ur Phencyclidine Scrn Negative (NEGATIVE) 06/18/17 23:16 Ur Amphetamines Screen Negative (NEGATIVE) 06/18/17 23:16 U Benzodiazepines Scrn Negative (NEGATIVE) 06/18/17 23:16 U Oth Cocaine Metabols Negative (NEGATIVE) 06/18/17 23:16 U Cannabinoids Screen Negative (NEGATIVE) 06/18/17 23:16 Alcohol, Quantitative < 10 mg/dl (0-10) 06/18/17 22:03 RPR Nonreactive (NONREACTIVE) 06/19/17 08:14 - Hospital Course Hospital Course: 72 y/o female with PMH HTN but no other known chronic problems who does not follow up with any PCP was brought in after having a seizure at home witnessed by family. In the ER, patient was agitated and was sedated. Patient has no history of seizures, dementia, EtOH abuse or other substance use as far as is known. Patient also has no history of head trauma as far as is known. Patient has not had any recent illnesses/fevers otherwise. CT head showed no acute pathology MRI head showed a tiny acute/ subacute infarct right posterior superior parietal subcortical white matter near the vertex. Moderate chronic white matter ischemic changes with a large chronic right frontal lobe infarct.Multiple chronic appearing lacunar type infarcts scattered about the deep and subcortical white matter, both basal nuclei and to a lesser degree brainstem and left cerebellum. There are scattered areas of hemosiderin deposits seen in the basal nuclei and right temporal lobe. Moderate generalized volume loss. She was admitted in telemetry for close monitoring , neurochecks and stroke work up . Started on statin , ASa, plavix and neuro consulted CTA head and neck showed :A small curvilinear calcified plaque right carotid bifurcation with no significant stenosis. . Tiny left carotid bifurcation with no evidence of occlusion significant stenosis or dissection. There are partially calcified plaque changes seen both cavernous carotid segments larger than right with moderate to significant stenosis of the mid aspect of the left cavernous carotid segment. There is origin of the right posterior cerebral artery. The right vertebral artery is much smaller in caliber than the dominant left vertebral artery. Right vertebral artery also appears to terminate in a right- side posterior inferior cerebellar artery as above. No evidence of large aneurysm nor vascular malformation. Patient with some memory problems and confusion at times . Her blood work up showed low vitamin B12 levels and she was started on on Vitamin B12 supplements. She remained hemodynamically stable with no gross neuro deficits,some on and off memory problems. Discussed with daughter all results and findings and all questions answered to her satisfaction. Discussed with neurologist who agrees with current medical management . No need for antiepileptic medications at present as per neuro. Patient is able to ambulate in unit with no assistance today in presence of MD and daughter . She will go to live with her daughter upon discharge for better care and supervision. Advised complinace with medications upon discharge. Follow up with [facility] in 1week will need evaluation in the future by neuro for possible dementia after Vitamin B12 deficiency is addressed . Will discharge patient home with daughter 1. Acute/ Subacute CVA at present with some memory problems that it could be due to Vitamin B12 deficiency or early dementia No gross neuro deficits and able to ambulate in unit today with no assistance MRI head ashowed tinny acute / suacute infarct and large chronic right frontal lobe infarct neurology consult appreciated Continue ASa, statin , Plavix Allow permissive hypertension Will d/c home with daughter 2.Seizure Most likely related to new CVA Ativan IV PRN for seizures neuro consult appreciated no neuroleptics started for now 3.HTN allow permissive hypertension Can start low dose Norvasc 2.5 mg po QD Follow up with [facility] in 1 week 4.Vitamin B12 deficiency with on and off confusion Given 1000 mcg Im injection today Start PO supplements Discharge Exam - Head Exam Head Exam: ATRAUMATIC, NORMAL INSPECTION - Eye Exam Eye Exam: EOMI, Normal appearance, PERRL Pupil Exam: NORMAL ACCOMODATION - ENT Exam ENT Exam: Mucous Membranes Moist, Normal Exam - Neck Exam Neck exam: Full Rom, Normal Inspection - Respiratory Exam Respiratory Exam: Clear to PA & Lateral, NORMAL BREATHING PATTERN. absent: Rales, Rhonchi, Wheezes - Cardiovascular Exam Cardiovascular Exam: REGULAR RHYTHM, RRR, +S1, +S2. absent: JVD - GI/Abdominal Exam GI & Abdominal Exam: Normal Bowel Sounds, Soft. absent: Distended, Guarding, Rebound, Tenderness - Rectal Exam Rectal Exam: Deferred - Extremities Exam Extremities exam: normal capillary refill, normal inspection, pedal pulses present - Back Exam Back exam: NORMAL INSPECTION - Neurological Exam Neurological exam: Alert, CN II-XII Intact, Oriented x3 Additional comments: with on and off memory problems and confusion at times gait stable - Psychiatric Exam Psychiatric exam: Normal Affect - Skin Skin Exam: Dry, Intact, Normal Color, Warm Discharge Plan - Discharge Medications Prescriptions: amLODIPine [Norvasc] 2.5 mg PO DAILY #30 tab Aspirin [Ecotrin] 81 mg PO DAILY #30 tabec Atorvastatin [Lipitor] 20 mg PO DAILY #30 tab Clopidogrel [Plavix] 75 mg PO DAILY #30 tab Cyanocobalamin (Vitamin B-12) [Vitamin B-12] 250 mcg PO DAILY #30 tablet - Follow Up Plan Condition: STABLE Disposition: HOME/ ROUTINE Patient education suggested?: Yes Referrals: [facility] [Outside] Clinical Quality Measures - CQM - Stroke Antithrombotic Prescribed: Yes Anticoagulation Prescribed for Atrial Flutter, Atrial Fibrillation and History of:: Not Applicable Statin prescribed: Yes
== END 2017-06-22 14:04 | disposition home or self-care (01) | DRG 66 ==
LOC: H.ER 21:35 → H.ERHOLD 06-19 00:03 → H.TEL 06-19 03:03
PROVIDERS: ADMIT Internal Medicine; ATTEND Internal Medicine
DX: I63.9 Cerebral infarction, unspecified (principal); I10 Essential (primary) hypertension; R56.9 Unspecified convulsions; R41.0 Disorientation, unspecified; Z78.1 Physical restraint status; E53.8 Deficiency of other specified B group vitamins